=== PATIENT | male | born 1955 | race Caucasian/White ===

== ENCOUNTER 2023-07-17 19:10 | Emergency (ER) | payer MEDICARE, OTHER, SELFPAY ==
[2023-07-17 19:16] VITALS: BP 139/79
[2023-07-17] MEDS: ERYTHROMYCIN 0.5% OPHTHALMIC OINTMENT 1 APPLIC OPHTH (22:35)
--- NOTE | 2023-07-17 22:40 | ED.GENMED ---
History of Present Illness
General
Chief Complaint: Eye Problems
Source: patient
Exam Limitations: none
Time Seen by Provider: 07/17/23 21:08
Nursing documentation reviewed up to this point in time: agreed with
Travel History
Have you had any contact with someone who has COVID-19?: No
Do you have any symptoms of coronavirus? Fever > 100 degrees, chills, cough, shortness of breath, sore throat, loss of taste or smell, muscle aches, or headache?: No
History of Present Illness
History of Present Illness:
68-year-old male with past medical history of hyperlipidemia presenting to the emergency department today after an injury to the right eye where he got poked in the eye with a stick while doing yard work. Denies any changes in vision or additional
concerns otherwise.
Past History
Past History
ED Past Medical History: Arrthythmia (PVCs), GERD and Other (Gout)
ED Past Surgical History: Orthopedic and Other (Umbilical herniorrhaphy)
Social History
Tobacco: Non-smoker
Alcohol: Occasional
Personal:
Living: with family
Employment: Employed
Family History
Family History: Negative Early CAD
Review of Systems
Review of Systems
Allergies reviewed?: Yes
All Other Systems: ROS reviewed and negative except as documented in HPI and ROS
Phy Exam
Physical Exam
Physical Exam:
GENERAL: Alert , in no apparent distress
EYE: Normal extraocular movements normal pupil reaction. Fluorescein examination revealing small abrasion to the 6:00 and 9:00 portion of the cornea. Millimeter in size. No foreign body seen with lid eversion. Normal visual acuity with
correction pupils equal and reactive
NECK: Supple, no significant adenopathy.
ENT: o/p clr, mmm.
CARDIAC: Regular rate and rhythm .
LUNGS: Clear breath sounds bilaterally, no acute respiratory distress, no wheezes/rales/rhonchi
ABDOMEN: Soft, without focal tenderness, no r/g, no cvat
NEUROLOGICAL: Alert and oriented, no focal neuro deficits
SKIN: Warm and dry, skin intact.
MUSCULOSKELETAL: No edema, well perfused.
PSYCH: Normal and appropriate interaction.
Course
Orders/Labs/Results
Orders:
Orders
07/17/23 22:03
Erythromycin (Ilotycin) [Erythromycin 0.5% Ophthalmic Ointment] See Dose Instructions OPHTH NOW STA
07/17/23 22:43
Tetracaine HCl [Tetracaine 0.5% Ophthalmic Solution] 1 drop .ROUTE .[facility]
Vital Signs
Initial and Last Documented VS:
Initial Vital Signs
Temp Pulse Resp BP Pulse Ox
97.9 F 62 18 139/79 97
07/17/23 19:16 07/17/23 19:16 07/17/23 19:16 07/17/23 19:16 07/17/23 19:16
Last Documented Vital Signs
Temp Pulse Resp BP Pulse Ox
97.9 F 62 18 139/79 97
07/17/23 19:16 07/17/23 19:16 07/17/23 19:16 07/17/23 19:16 07/17/23 19:16
MDM/Problems Addressed
MDM/Problems Addressed:
60-year-old male presenting to the emergency department after being hit in the right eye with a branch prior to arrival. Patient is found to have a superficial corneal abrasion no signs of deeper injury normal extraocular movement normal visual
acuity. Patient was given erythromycin ointment and advised for close outpatient follow-up. Return precautions given.
*Critical Care Note
Total Time (30-74mins, 75-104mins- exclusive of procedures): Not Applicable
ED Attending Note
-
Portions of this chart may have been created with voice recognition software.� Occasional wrong word or��sound alike� substitutions may have occurred due to the inherent limitations of voice recognition software.
Discharge Plan
Departure
Patient Disposition: Home (Routine Discharge)
Date of Disposition: 07/17/23
Time of Disposition: 22:40
Patient with high blood pressure during this ER visit?: No
Condition: Good
Covid-19: Not Applicable
Discharge Problem:
Abrasion, corneal
Instructions: Corneal Abrasion (DC)
Prescriptions:
No Action
omeprazole 40 MG capsule,delayed release(DR/EC)
40 mg PO HS
multivitamin [Daily Vitamin] 1 EACH tablet
1 ea PO DAILY
diphenhydramine HCl [Benadryl] 25 MG capsule
50 mg PO PRN PRN (Reason: itching)
Lactobacillus acidophilus [Probiotic] 1 EACH capsule
1 ea PO DAILY
ondansetron 4 mg tablet,disintegrating
4 mg PO Q8H PRN (Reason: nausea and vomiting) Qty: 7 0RF
Referrals:
Patrice Mcgraw I., [Family Provider] -
Doris Thomson MD [Active] - Follow up in 2-3 days
Activity Restrictions/Additional Instructions:
You came to the emergency department today with concerns of discomfort to your right eye. You are found to have a corneal abrasion. Please use the erythromycin 3 times daily to the affected eye. Please follow closely with ophthalmology for any
ongoing symptoms. Return to the emergency department for any worsening, new or concerning symptoms.
Interventions
Interventions:
*Risk Screen - Suicide Last Done: 07/17/23 19:18
*General Assessment Last Done: 07/17/23 19:18
*Neglect/Abuse Screening Last Done: 07/17/23 19:18
*ED COVID-19 Vaccine History Last Done: 07/17/23 19:18
*Nursing Disposition Last Done: 07/17/23 22:47
Discharge Date and Time
Discharge Date/Time: 07/17/23 22:47
Print Language: UKRAINIAN
== END 2023-07-17 22:47 | disposition home or self-care (01) ==
LOC: EMR 19:10
PROVIDERS: EMERGENCY PHYSICIAN Emergency Medicine; FAMILY PHYSICIAN Internal Medicine
DX: S05.01XA Injury of conjunctiva and corneal abrasion without foreign body, right eye, initial encounter (principal); W22.8XXA Striking against or struck by other objects, initial encounter
CPT/HCPCS: 99283

== ENCOUNTER → 2023-07-19 08:48 | Outpatient (REF) | payer MEDICARE, OTHER, SELFPAY | LOC: HWRAD 08:48 | PROVIDERS: ATTENDING PHYSICIAN Internal Medicine | DX: Z00.00 Encounter for general adult medical examination without abnormal findings (principal); K75.81 Nonalcoholic steatohepatitis (NASH); R10.13 Epigastric pain | CPT/HCPCS: 76700 ==

== ENCOUNTER → 2023-08-01 08:13 | Outpatient (REF) | payer MEDICARE, OTHER, SELFPAY | LOC: MRI 3T 08:13 | PROVIDERS: ATTENDING PHYSICIAN Orthopaedic Surgery; FAMILY PHYSICIAN Internal Medicine | DX: M25.562 Pain in left knee (principal); M25.512 Pain in left shoulder | CPT/HCPCS: 73221; 73721 ==

== ENCOUNTER 2023-08-29 12:58 | Inpatient (IN) | payer MEDICARE, OTHER, SELFPAY ==
[2023-08-27 16:59] VITALS: BP 160/97
[2023-08-27 17:17] LABS: % Basophils 0.4 % (0-2); % Eosinophils 0.3 % (0-6); % Immature Granulocytes 0.5 % (0-0.5); % Monocytes 7.1 % (1.7-9.3); % Neutrophils 85.7 % (42.2-75.2); Absolute Basophils 0.1 10^3/uL (0-0.2); Absolute Immature Granulocytes 0.1 10^3/uL (0-0.05); Absolute Lymphocytes 0.7 10^3/uL (1.2-3.4); Absolute Monocytes 0.8 10^3/uL (0.1-0.6); Absolute Neutrophils 9.9 10^3/uL (1.4-6.5); Hematocrit 46.2 % (39.0-52.0); Hemoglobin 15.7 g/dL (13.0-18.0); Mean Corpuscular Hgb 30.3 pg (27.0-31.0); Mean Corpuscular Volume 89.2 fL (80.0-94.0); Nucleated Red Blood Cells % 0 % (-); Platelet Count 166 10^3/uL (130-400); Red Blood Cell Count 5.18 10^6/uL (4.70-6.10); Red Cell Dist. Width 13.9 % (11.5-14.5); White Blood Cell Count 11.6 10^3/uL (4.8-10.8)
[2023-08-27 17:36] LABS: ALT (SGPT) 173 U/L (0-50); AST (SGOT) 184 U/L (17-59); Albumin 4.1 g/dl (3.5-5.0); Alkaline Phosphatase 252 U/L (38-126); Blood Urea Nitrogen 20 mg/dl (9-20); Calcium 9.5 mg/dl (8.4-10.2); Carbon Dioxide 30 mmol/L (22-30); Chloride 101 mmol/L (98-107); Glucose 122 mg/dl (70-99); Potassium 4.2 mmol/L (3.5-5.1); Sodium 136 mmol/L (135-145); Total Bilirubin 2.6 mg/dl (0.2-1.3); Total Protein 6.7 g/dl (6.3-8.2); eGFR > 60.00
[2023-08-27 17:37] LABS: Lipase 151 U/L (23-300)
[2023-08-27 17:45] LABS: Troponin I < 0.012 ng/ml
[2023-08-27 18:52] VITALS: BP 158/77
--- NOTE | 2023-08-27 18:56 | ED.GENMED ---
History of Present Illness
General
Chief Complaint: Chest Pain
Source: patient and spouse
Exam Limitations: none
Time Seen by Provider: 08/27/23 18:55
Travel History
Have you had any contact with someone who has COVID-19?: No
Do you have any symptoms of coronavirus? Fever > 100 degrees, chills, cough, shortness of breath, sore throat, loss of taste or smell, muscle aches, or headache?: No
History of Present Illness
History of Present Illness:
68-year-old male 4 days of mid scapular pain on the right side. Saw his family physician. However about 1 PM today he developed some upper abdominal lower chest pain with this. Some mild nausea. No fever no shortness of breath. History of
biliary duct spasm however has never presented quite like this.
Past History
Past History
ED Past Medical History: Arrthythmia (PVCs), GERD and Other (Gout. Biliary duct spasm)
ED Past Surgical History: Orthopedic and Other (Umbilical herniorrhaphy)
Social History
Tobacco: Non-smoker
Alcohol: Occasional
Personal:
Living: with family
Employment: Employed
Family History
Family History: Negative Early CAD
Phy Exam
Physical Exam
Physical Exam:
GENERAL: Alert and oriented. Nontoxic but appears moderately uncomfortable
EYE: Orbits normal.
NECK: Supple
CARDIAC: Regular rate and rhythm without any obvious murmurs.
LUNGS: Clear breath sounds,normal
ABDOMEN: Soft, no pulsatile masses. Bowel sounds present. Mild epigastric tenderness. No CVA tenderness.
NEUROLOGICAL: Alert and oriented , grossly non-focal
SKIN: Warm and dry, no rash or lesion, no discoloration, skin intact.
MUSCULOSKELETAL: No edema,no deformity.Good color
PSYCH: Normal and appropriate interaction.
Scores
Heart Score for Chest Pain Patients
STEMI patient?: Not applicable
Course
Orders/Labs/Results
Orders:
Orders
08/27/23 Dinner
NPO
Allow oral meds: Yes
Allow clear liquids: Sips of Clears
NPO with Ice Chips: No
08/27/23 16:56
EKG [Electrocardiogram (*1)] Urgent
Reason for Study: Chest Pain
EKG- Treatment ONCE
08/27/23 17:07
Complete Blood Count/With Diff Urgent
Comprehensive Metabolic Panel Urgent
Lipase Urgent
Troponin I Urgent
08/27/23 19:05
IV Insert/Care/Rem.- Treatment PRN
0.9% Sodium Chloride 1000 ml [Nss] 1,000 ml IV BOLUS
Ondansetron Injectable [Zofran] 4 mg IV NOW STA
08/27/23 19:06
US Abdomen Limited Urgent
Comment:
Reason For Exam: Upper abdominal pain to back. Elevated LFTs
08/27/23 19:07
CT Chest/abd/pelvis Angio W/wo Urgent
Comment:
Reason For Exam: Upper back pain radiating to mid abdomen
08/27/23 19:11
HYDROmorphone [Dilaudid] 0.5 mg IV NOW STA
08/27/23 19:48
Electrocardiogram (*1) Stat
Reason for Study: Other
Other Reason for Exam: chest pain
EKG- Treatment ONCE
08/27/23 20:58
Troponin I Urgent
08/27/23 21:21
Warm Compress [Heat Application] As Directed
Apply warm compress to (location):: right thoracic parspinal
Compress Frequency:: Intermittent q2h
Duration of Application: No longer than 20 minutes
08/27/23 21:22
Admit/Transfer Patient As Directed
Co-Sign Provider:
Level of Care: Observation services
Assign to:: Medical/Surgical
Physician / Group: evans allan
Diagnosis: abd pain concern cholestasis exac, right paraspinal muscle strain
Code Status As Directed
Resuscitation Status: Full Code
08/27/23 22:00
Flush (0.9% Sodium Chloride) [Flush (Nss)] See Dose Instructions IV PER PROTOCOL
08/27/23 22:06
Urinalysis Reflex To Culture Urgent
Date Specimen was Collected: 08/27/23
Time Specimen was Collected: 20:59
08/27/23 22:39
0.9% Sodium Chloride 1000 ml [Nss] 1,000 ml IV 100 mls/hr
Allopurinol [Zyloprim] 200 mg PO HS
Famotidine [Pepcid] 10 mg PO HS
HYDROmorphone [Dilaudid] 0.5 mg IV Q3HPRN PRN
HYDROmorphone [Dilaudid] 1 mg IV Q4HPRN PRN
HydrALAZINE [Apresoline] 5 mg IV Q6HPRN PRN
Loratadine [Claritin] 10 mg PO HS
Ondansetron Injectable [Zofran] 4 mg IV Q6HPRN PRN
Rosuvastatin Calcium [Crestor] 5 mg PO HS
08/27/23 22:39
Activity As Directed
Activity Level: As Tolerated
Intake/ Output As Directed
Frequency: Per unit guidelines
Vital Signs As Directed
Frequency: Per unit guidelines
Ot Eval And Treat Routine
Pt Eval And Treat Routine
Activity Level: As Tolerated
DX Deep Vein Thrombosis Video Routine
08/28/23 06:00
Complete Blood Count/With Diff IN AM
Comprehensive Metabolic Panel IN AM
Hgba1c [Glycohemoglobin (HgbA1c)] IN AM
08/28/23 08:00
Lidocaine [Lidocaine 4% Patch] 1 patch TOPICAL DAILY
08/28/23 18:00
Enoxaparin Sodium [Lovenox] 40 mg SC QPM
08/28/23 20:00
Remove Patch [Remove Lidocaine Patch] 1 patch REMOVE DAILY@1999
Abnormal Lab Results
08/27/23
17:07
WBC 11.6 H 10^3/uL
(4.8-10.8)
Abs Immat Gran (auto) 0.1 H 10^3/uL
(0-0.05)
Absolute Neuts (auto) 9.9 H 10^3/uL
(1.4-6.5)
Absolute Lymphs (auto) 0.7 L 10^3/uL
(1.2-3.4)
Absolute Monos (auto) 0.8 H 10^3/uL
(0.1-0.6)
Neutrophils % 85.7 H %
(42.2-75.2)
Lymphocytes % 6.0 L %
(20.5-51.1)
Glucose 122 H mg/dl
(70-99)
Total Bilirubin 2.6 H mg/dl
(0.2-1.3)
AST 184 H U/L
(17-59)
ALT 173 H U/L
(0-50)
Alkaline Phosphatase 252 H U/L
(38-126)
08/27/23 17:07
08/27/23 17:07
Vital Signs
Initial and Last Documented VS:
Initial Vital Signs
Temp Pulse Resp BP Pulse Ox
98.2 F 90 16 160/97 98
08/27/23 16:59 08/27/23 16:59 08/27/23 16:59 08/27/23 16:59 08/27/23 16:59
Last Documented Vital Signs
Temp Pulse Resp BP Pulse Ox
98.2 F 61 18 148/85 98
08/27/23 22:43 08/27/23 22:43 08/27/23 22:43 08/27/23 22:43 08/27/23 23:40
MDM/Problems Addressed
Differential Diagnosis Includes:
Patient presents with 4 days of upper back pain. Developed upper abdominal pain lower chest pain starting around 1 PM today. Has a history of biliary duct spasm. However symptoms have never been the back pain the way this is presented. Pain is
moderate in nature. No pleuritic pain or shortness of breath. No fever. Patient's LFTs and bilirubin are elevated. They had come back to essentially baseline May 11 they are now elevated again and this is likely the source of his symptoms.
However cardiac is also being considered with a normal troponin and EKG. This will be repeated weakness. Also with upper back pain and mid abdominal pain a CT scan will be done. Patient clearly will be admitted for his care
*Radiology
Radiology exam reviewed: radiology read reviewed (CT and ultrasound with no acute findings)
*Pulse Oximetry
Patient hypoxic: no
*EKG
Interpreted by ED Provider?: Yes
Interpretation: normal
Comparison EKG: no changes
Heart Rate: 84
Rate: normal
Rhythm: sinus and PVC's
[place]: normal axis
Interval: normal interval
QRS Pattern: normal QRS
Ischemia: no ischemia
*Critical Care Note
Total Time (30-74mins, 75-104mins- exclusive of procedures): Not Applicable
Data Reviewed
Review of Other/Old Records Reveals: Labs, Records, Operative Reports, Testing and Discharge Summary
Update Note
Update Note:
Patient is more comfortable. Repeat EKG normal sinus rhythm PVCs no acute changes rate of 73. Patient appears much better. Suspect a common duct issue whether spasm stricture etc. Warrants further inpatient care.
ED Attending Note
-
Portions of this chart may have been created with voice recognition software.� Occasional wrong word or��sound alike� substitutions may have occurred due to the inherent limitations of voice recognition software.
Discharge Plan
Departure
Patient Disposition: Admit
Date of Disposition: 08/27/23
Time of Disposition: 20:42
Presentation/result/management discussed w/ accepting MD/DO: Hospitalist
Discharge Problem:
Elevated LFTs, Suspect biliary spasm
Interventions
Interventions:
*Risk Screen - Suicide Last Done: 08/27/23 19:37
*General Assessment Last Done: 08/27/23 19:37
*Neglect/Abuse Screening Last Done: 08/27/23 19:37
ED- Fall Risk Assessment Last Done: 08/27/23 19:37
*ED COVID-19 Vaccine History Last Done: 08/27/23 19:37
*Nursing Disposition Last Done: 08/27/23 22:30
ED- Cardiac Assessment Last Done: 08/27/23 19:37
Discharge Date and Time
Discharge Date/Time: 08/27/23 22:30
[2023-08-27 19:00] VITALS: BP 151/100
[2023-08-27] MEDS: DILAUDID 0.5 MG IV ×2 (19:27→23:54)
[2023-08-27] MEDS: NSS 1000 IV ×2 (19:28→23:27)
[2023-08-27] MEDS: ZOFRAN 4 MG IV (19:28)
[2023-08-27 19:36] VITALS: BMI 32.3
--- NOTE | 2023-08-27 20:58 | HPS.HSE ---
Family Physician
-
Family Physician: Patrice Mcgraw
Chief Complaint
-
Epigastric pain with nausea, right posterior paraspinal thoracic point tenderness after gardening
History of Present Illness
68-year-old male complaining of 4 days of right-sided thoracic paraspinal tenderness with movement and at rest. He states he has been gardening for the past 2 weeks ripping and pulling out weeds. Today at 1 PM he developed upper abdominal/lower
chest pain with mild nausea which is the same pain he has when he has a cholestasis attack. He reports increased urinary frequency today no dysuria. He denies fever, chills, chest pain, palpitations, vomiting, diarrhea.
He has past medical history of PVCs/bigeminy, GERD, gout, biliary duct spasm, cholestasis Hx fatty liver/NATION Dx 6 years ago [facility] via liver biopsy, HLD, cholecystectomy, L5 bulging disc
Medical History
Past Medical History
Past Medical History: Reports Other
Additional Past Medical History:
PVCs/bigeminy
GERD
gout
biliary duct spasm
Hx fatty liver/NATION
HLD
cholecystectomy, L5 bulging disc
Past Surgical History: Reports Other
Additional Past Surgical History:
Umbilical hernia repair
Abscess left tibia
Right rotator cuff repair 2001
Arthroscopy knee 2007
Social History
Tobacco: Non-smoker
Alcohol: None
Drug: None
Personal:
Living: With Family ()
Employment: Retired
Family History
Family History: Other (Mother history of dementia, HTN in her 90s, father history of dementia age 80s 4 brothers 1 sister history of obesity, 1 brother history DM2)
Allergies / Home Medications
Allergies reflects when Allergies were last updated in [facility].
Home Medications with original date entered in [facility]
Allergy/Medication List:
Allergies
Allergy/AdvReac Type Severity Reaction Status Date / Time
Cephalosporins Allergy Unknown Verified 06/15/14 16:57
codeine Allergy Tongue Verified 08/27/23 17:02
Swelling
penicillin G Allergy Hives Verified 06/15/14 16:57
Home Medications
allopurinol 100 mg tablet 200 mg PO HS 08/27/23
famotidine 10 mg tablet 10 mg PO HS 08/27/23
loratadine 10 mg tablet 10 mg PO HS 08/27/23
rosuvastatin 5 mg tablet 5 mg PO HS 08/27/23
Review of Systems
-
History Source: Patient and Family ( at bedside)
A 12 point ROS was completed and negative except as noted: Yes
Constitutional: Denies Fatigue or Chills
EENT: Denies Sore Throat or Runny Nose
Respiratory: Denies Cough or Trouble Breathing
Cardiac: Denies Chest Pain, Diaphoresis, Palpitations or Syncope
Abdomen/GI: Reports Abdominal Pain (Epigastric) and Nausea; Denies Vomiting, Diarrhea, Constipated, Bloody Stools or Black Stools
: Reports Frequency; Denies Dysuria, Flank Pain, Incontinence, Difficulty Voiding or Urgency
Musculoskeletal: Reports Other (Right thoracic paraspinal muscular tenderness); Denies Joint Pain or Edema
Skin: Denies Itching or Rash
Neurological: Denies Dizzy, Headache or Weakness
Endocrine: Reports No Symptoms
Hematologic/Lymphatic: Reports No Symptoms
Psych: Reports Calm
Physical Exam
Vital Signs
Vital Signs
Temp Pulse Resp BP Pulse Ox
98.2 F 70 12 151/100 96
08/27/23 16:59 08/27/23 19:30 08/27/23 19:30 08/27/23 19:00 08/27/23 19:37
Physical Exam
General: Comfortable and Conversant; No Fever or Chills
HEENT: NormoCephalic, Anicteric, Moist mucous membranes, PERRLA, Suring Conjunctivae and No Ptosis
Respiratory: Clear; No Wheezes, Rales or Rhonchi
Cardiac: S1/S2 and Regular Rhythm; No Murmur, Rub, Gallop or Peripheral Edema
Breast: Deferred by me
GI: Soft, Non Distended, Normal Bowel Sounds, Tender (Epigastric) and No Hepatosplenomegaly
Rectal: Deferred by Provider
Genito-urinary: Deferred by me
Musculoskeletal: No Clubbing, No Cyanosis and No Edema
Skin: Warm, Dry and Other (Right thoracic paraspinal muscular tenderness); No Rash
Neuro: AO x 3, No Motor Deficits, Nonfocal/grossly intact, Cranial Nerves Intact and No Sensory Deficits; No Slurred Speech, Facial Droop or Tremors
Psych: Calm
Laboratory Results
-
08/27/23 17:07
08/27/23 17:07
Laboratory Results
Total Bilirubin 2.6 mg/dl (0.2-1.3) H 08/27/23 17:07
AST 184 U/L (17-59) H 08/27/23 17:07
ALT 173 U/L (0-50) H 08/27/23 17:07
Alkaline Phosphatase 252 U/L (38-126) H 08/27/23 17:07
Troponin I < 0.012 ng/ml 08/27/23 17:07
Lipase 151 U/L (23-300) 08/27/23 17:07
Data Reviewed
-
Ultrasound: Report Reviewed by me
Lab Data: Labs Reviewed by me
Impression/Plan
-
Impression/plan:
Obs MedSurg
#Abdominal pain with transaminitis, hyperbilirubinemia likely cholestasis exacerbation
#Hx fatty liver/NATION dx 6 years ago [facility]
#Hx biliary spasms
#Hx cholecystectomy 2014
AST 184, ALT 173, alk phos 252, T. bili 2.6
WBC 11.6, afebrile
-Consult GI
-N.p.o. except sips of water/meds
-IV NSS
-IV Zofran
-IV pain control
-Continue Pepcid 10 mg at bedtime, Crestor 5 mg at bedtime
-Follow CBC, CMP
CT chest abdomen pelvis with without contrast:
No acute pathology of the chest abdomen pelvis
Prior cholecystectomy
Mild pneumobilia probably due to prior sphincterectomy
Severe diverticulosis stable
Mild fecal material throughout the colon progress
Mild prostate hypertrophy
Large simple left renal cyst
Abdominal ultrasound: Mild hepatomegaly 17.9 cm�new, hepatic fatty infiltration new, prior cholecystectomy
CBD duct 7 mm
#Right posterior paraspinal muscle strain
-Heat
-Lidoderm patch
#Hyperglycemia
BS 122
-Reports symptoms of increased urination
-Check HgbA1c
#HTN to be established-likely secondary to pain
151/100 will monitor BP
IV hydralazine if SBP> 185/100
#HLD
-Continue Crestor 5 mg at bedtime
-Check lipid profile
# PVCs/bigeminy hx
#GERD
-Continue Pepcid 10 mg at bedtime
# Gout
-Continue allopurinol 200 mg at bedtime
#L5 bulging disc hx
#Seasonal allergies
Continue loratadine 10 mg at bedtime
DVT prophylaxis
Subcu Lovenox
Full code
--- NOTE | 2023-08-27 21:21 | W.PN.UPDATE ---
Update Note
Progress Note Update
This addendum is for H&P written on 08/27/23
I agree with assessment and plan, in addition:
68yo M came with midscapular pain, later radiated to abd. Lipase WNL, elevated LFT with hepatocellular and obstrcutive pattern which are rather chronic.
US RUQ - CBD 7mm, no stone, hx of cholecystectomy. CTA chest/abd/pelvis- no acute findings. No fever. Patient had similar episodes of cholestasis before. ALso PMHx of NATION
- IVF, NPO, pain mgmt GI consult and serial LFT
We have spent at least 79min preparing admission, communicating to family, reviewing previous chart notes, and direct patient care
[2023-08-27 21:29] LABS: Troponin I < 0.012 ng/ml
[2023-08-27 22:26] LABS: Urine Albumin Negative (Neg - Trace); Urine Bilirubin Negative (Negative); Urine Character Clear (Clear); Urine Color Yellow; Urine Glucose Negative (Negative); Urine Ketone 1+ (Negative); Urine Leukocyte Negative (Negative); Urine Nitrite Negative (Negative); Urine Occult Blood Negative (Negative); Urine Urobilinogen 2+ (Neg - 1+)
[2023-08-27 22:33] VITALS: BMI 32.2
[2023-08-27 22:43] VITALS: BP 148/85
[2023-08-27] MEDS: CLARITIN 10 MG PO (23:27)
[2023-08-27] MEDS: PEPCID 10 MG PO (23:27)
[2023-08-27] MEDS: ZYLOPRIM 200 MG PO (23:27)
[2023-08-27] MEDS: CRESTOR 5 MG PO (23:27)
--- NOTE | 2023-08-28 00:22 | PTCARENOTE ---
Receive pt from ER. Pt alert oriented X3, calm and cooperative. In no distress. Pt assisted X1 to his bed. Pt oriented to the room, call denis within reach. Pt states that he has epigastric pain, which is manageable at this time. The pain is 2-3/10.
Pt complains most about middle back pain. The pain is 5/10. Pt states that heat compresses are helpful. Pt has no complaint of SOB, chest pain, or nausea. VSS (T=98.2, HR=61, RR=18, YW=066/85, SpO2=98% on RA). IVFs infusing, dilaudid given for pain.
Will continue to monitor the pt.
[2023-08-28] MEDS: LIDOCAINE 4% PATCH 1 PATCH TOPICAL (07:43)
[2023-08-28 07:56] VITALS: BP 140/85
[2023-08-28] MEDS: DILAUDID 0.5 MG IV ×2 (07:57→21:25)
[2023-08-28] MEDS: FLUSH (NSS) 1 FLUSH IV ×2 (07:58→10:06)
[2023-08-28 08:27] LABS: % Basophils 0.5 % (0-2); % Eosinophils 0.7 % (0-6); % Immature Granulocytes 0.4 % (0-0.5); % Lymphocytes 17.5 % (20.5-51.1); % Monocytes 8.8 % (1.7-9.3); % Neutrophils 72.1 % (42.2-75.2); Absolute Eosinophils 0.1 10^3/uL (0-0.7); Absolute Lymphocytes 1.3 10^3/uL (1.2-3.4); Absolute Monocytes 0.7 10^3/uL (0.1-0.6); Absolute Neutrophils 5.4 10^3/uL (1.4-6.5); Hematocrit 43.9 % (39.0-52.0); Mean Corp Hgb Conc. 34.2 g/dL (33.0-37.0); Mean Corpuscular Volume 90.7 fL (80.0-94.0); Mean Platelet Volume 10.8 fL (7.4-10.4); Nucleated Red Blood Cells % 0 % (-); Platelet Count 165 10^3/uL (130-400); Red Blood Cell Count 4.84 10^6/uL (4.70-6.10); White Blood Cell Count 7.5 10^3/uL (4.8-10.8)
[2023-08-28 09:00] LABS: ALT (SGPT) 204 U/L (0-50); AST (SGOT) 136 U/L (17-59); Albumin 3.7 g/dl (3.5-5.0); Alkaline Phosphatase 228 U/L (38-126); Blood Urea Nitrogen 19 mg/dl (9-20); Calcium 8.8 mg/dl (8.4-10.2); Carbon Dioxide 30 mmol/L (22-30); Chloride 103 mmol/L (98-107); Estimated Creatinine Clearance 105 ml/min; Glucose 85 mg/dl (70-99); Potassium 4.4 mmol/L (3.5-5.1); Sodium 136 mmol/L (135-145); Total Bilirubin 3.1 mg/dl (0.2-1.3); Total Protein 6.1 g/dl (6.3-8.2); eGFR > 60.00
--- NOTE | 2023-08-28 09:39 | W.PN.HOSP.TC ---
Today's Communication/Plan
-
decadron 10 mg IV x 1
await GI input
Assessment / Plan
Assessment / Plan
pt is a 68 year old male
Abdominal pain with transaminitis, hyperbilirubinemia likely cholestasis exacerbation (has hx of fatty liver/NATION/biliary spasms/cholecystectomy)--await GI--CT scan without acute abnormalities--NPO/IVF--pain control/antiemetics
Right posterior paraspinal muscle strain with upper right rib pain --think musculoskeletal/costochondritis--Heat--Lidoderm patch--will give 10 mg IV decadron x 1
Hyperglycemia--BS 122 on admission--watch with steroid--Reports symptoms of increased urination--Check HgbA1c
Essential HTN to be established--likely secondary to pain--151/100 will monitor BP--IV hydralazine if SBP> 185/100
HLD--Continue Crestor 5 mg at bedtime--Check lipid profile
PVCs/bigeminy hx
GERD--Continue Pepcid 10 mg at bedtime
Gout--Continue allopurinol 200 mg at bedtime
L5 bulging disc hx
Seasonal allergies--Continue loratadine 10 mg at bedtime
DVT prophylaxis--Subcu Lovenox
Full code
Anticipated Discharge: 24 - 48 hours
Subjective/Interval History
-
Date of Service: August 28, 2023
pt c/o scapular pain and now pain new axilla on chest wall (tender to palpation along ribs)
Objective Data
-
Labs:
Laboratory Results
08/28/23
05:41
WBC Pending
Hgb Pending
Hct Pending
Plt Count Pending
Sodium 136
Potassium 4.4
Chloride 103
Carbon Dioxide 30
BUN 19
Creatinine 0.9
Glucose 85
Calcium 8.8
Total Bilirubin 3.1 H
AST 136 H
ALT 204 H
Alkaline Phosphatase 228 H
Vital Signs:
max temp for 24 hours
08/27/23
22:43
Temp 98.2 F
Vital Signs
Temp Pulse Resp BP Pulse Ox
98.3 F 52 16 140/85 97
08/28/23 07:56 08/28/23 07:56 08/28/23 07:56 08/28/23 07:56 08/28/23 07:56
I&O
08/27/23 08/28/23 08/29/23
06:59 06:59 06:59
Intake Total 600 / 600
Balance 600 / 600
Review of Systems
-
All other systems: Reviewed and negative
Musculoskeletal: Reports Other (scapula and rib pains)
Physical Exam
-
General: Well Developed, Well Nourished and No Apparent Distress
HEENT: Normocephalic and Atraumatic
Respiratory: Clear to Auscultation; Negative Wheezes or Rhonchi
Cardiac: Regular Rhythm and S1/S2; Negative Murmur
GI: Soft, Nontender, Nondistended and Normal Bowel Sounds
Musculoskeletal: No Clubbing, No Cyanosis, No Edema and Other (right scapular pain and upper right rib pain to palpation)
Neuro: Awake and Alert
Psych: Calm
[2023-08-28] MEDS: NSS 1000 IV ×2 (09:43→19:44)
[2023-08-28] MEDS: DECADRON 10 MG IV (09:59)
[2023-08-28 10:48] LABS: Glycohemoglobin (HgbA1c) 5.6 % (4.0-5.6)
--- NOTE | 2023-08-28 11:29 | CON.GI ---
Addendum entered and electronically signed by Nava Aranda MD 08/28/23 14:01:
I saw and examined the patient.
The RUG CLEANER's note was reviewed and I agree with the note.
--Abdominal pain/nausea/vomiting
--Elevated liver test -AST 136/ALT 204/alkaline phos 3-28/total bilirubin 3.1. Ultrasound abdomen on admission no intrahepatic dilation. CBD 7 mm
-History history of cholecystectomy
-History of CBD stone s/p ERCP 2014
-Fatty liver
plan
Considering his prior history of CBD stone - his current symptoms/elevated liver test suspicious for CBD stone or sludge. Will evaluate with MRI /MRCP
Trend LFT
N.p.o.
Pain management as per medical team
Antiemetics as needed
Will follow
Original Note:
Consultation
-
Date/Time Consultation Requested: 08/27/23 @ 22:03
Date/Time Consultation Performed: 08/28/23 @ 11:30
Requesting Provider: ROSIO Ricci
Performing Provider: ROSIO Chopra; Dr. Aranda
Reason for Consultation: cholestasis, hx parks
Medical History
Chief Complaint / HPI
Chief Complaint: Epigastric pain, nausea,right posterior paraspinal thoracic point tendernes
History of Present Illness:
The patient is a 68-year-old male with a past medical history significant for GERD, choledocholithiasis status postcholecystectomy and ERCP in 2014, biliary colic/cholestasis, history of fatty liver disease diagnosed on liver biopsy (6-7 years ago
at [place]), hyperlipidemia, lumbar disc disease, who presented to the emergency room with complaints of epigastric pain associated with nausea and right, shoulder pain. We are being asked to evaluate for the presenting symptoms. The patient
reports that 2 weeks ago he had developed abdominal pain with typical symptoms of previous biliary attacks. He notes since having his goal is about 1 attack yearly which unclear in etiology. His notes that he did appear yellow in color which
has symptoms improved. He notes that his urine also was dark as well. He notes no significant fevers or chills but did feel clammy and had 3 episodes of nausea with vomiting which prompted his ER evaluation. He describes epigastric pain that is
worsened after fatty meals. This episode did occur after eating macaroni and cheese. He notes that he has also been having some back pain and notes she is undergoing evaluation for with his PCP for a mid thoracic disc herniation. He notes that he
was having right-sided back pain which now has progressed into the right chest area. He notes that he did have a liver biopsy about 6 to [address] Cisneros out of [facility] which did confirm PARKS. He had a FibroScan done within the last
few years which did show F0 to F1 disease he notes due to his ongoing intermittent episodes of suspected cholestasis a possibility of stent placement was talked about in the past but he did not go through with. He notes that he was on medication at
some point in the past but he does not recall the name for this. He tries to maintain a low-fat diet but does eat fatty foods at times. He denies any alcohol use. He is a non-smoker. He otherwise denies any significant weight loss, loss of
appetite, dysphagia, odynophagia, change in bowel habits, melena, hematochezia, or hematemesis. He did any history of hepatitis or other liver disease. EGD and colonoscopy as noted below although he had more recent colonoscopy within the last [address] Cisneros and notes that he is due now. He denies any family history of first-degree relatives with colon cancer or other GI cancers or disorders, but noted his paternal grandmother did have stomach cancer. Routine labs on admission
showed WBC 11.6, total bilirubin 2.6, AST 184, ALT 173, alk phos 252, lipase 151, otherwise CBC and CMP within normal limits. Ultrasound imaging was obtained showing mild hepatomegaly and hepatic fatty infiltration otherwise no biliary findings. A
CTA of the chest, abdomen, and pelvis was also obtained showing new acute pathology suggestive of dissection or PE, with chronic findings as noted below. He was made n.p.o., started on IV fluids, admitted for further evaluation by GI and LFT trend.
Past Medical History
Past Medical History: GERD, HTN, Hypercholesterolemia and Other (Choledocholithiasis status post ERCP and CCY in 2015, PARKS diagnosed on liver biopsy, lumbar disc disease, gout, episodic biliary attacks/cholestasis)
Past Surgical History: Cholecystectomy and Other (Umbilical hernia repair, right rotator cuff repair, right meniscus repair, abscess of left the tib-fib)
Social History
Tobacco: Non-Smoker
Alcohol: None
Drug: None
Personal:
Living: With Family
Family History
Family History: Reviewed & Not Pertinent
Allergies / Home Medications
Allergy/AdvReac Type Severity Reaction Status Date / Time
Cephalosporins Allergy Unknown Verified 06/15/14 16:57
codeine Allergy Tongue Verified 08/27/23 17:02
Swelling
penicillin G Allergy Hives Verified 06/15/14 16:57
�Medication �Instructions �Recorded
allopurinol 100 mg tablet 200 mg PO HS 08/27/23
famotidine 10 mg tablet 10 mg PO HS 08/27/23
loratadine 10 mg tablet 10 mg PO HS 08/27/23
rosuvastatin 5 mg tablet 5 mg PO HS 08/27/23
Review of Systems
-
History Source: Patient and Family
All other systems: A 12 pt ROS was Negative except as stated above in HPI
Vital Signs
Temp Pulse Resp BP Pulse Ox
98.3 F 52 16 140/85 95
08/28/23 07:56 08/28/23 07:56 08/28/23 07:56 08/28/23 07:56 08/28/23 10:49
Physical Exam
Exam
General: Well Developed, Well Nourished and Other (Slightly jaundiced)
HEENT: Normocephalic, Anicteric and Atraumatic
Respiratory: Clear
Cardiac: S1/S2 and Regular Rhythm
Breast: Deferred by me
GI: Soft, Non Distended, Normal Bowel Sounds and Tender (Minimally tender in the right lower quadrant)
Rectal: Deferred by Provider
Musculoskeletal: No Edema
Skin: Warm and Dry
Neuro: Awake, Alert and Oriented
Psych: Calm
Results
WBC 7.5 10^3/uL (4.8-10.8) 08/28/23 05:41
Hgb 15.0 g/dL (13.0-18.0) 08/28/23 05:41
Hct 43.9 % (39.0-52.0) 08/28/23 05:41
MCV 90.7 fL (80.0-94.0) 08/28/23 05:41
Plt Count 165 10^3/uL (130-400) 08/28/23 05:41
Absolute Neuts (auto) 5.4 10^3/uL (1.4-6.5) 08/28/23 05:41
Sodium 136 mmol/L (135-145) 08/28/23 05:41
Potassium 4.4 mmol/L (3.5-5.1) 08/28/23 05:41
Chloride 103 mmol/L (98-107) 08/28/23 05:41
Carbon Dioxide 30 mmol/L (22-30) 08/28/23 05:41
BUN 19 mg/dl (9-20) 08/28/23 05:41
Creatinine 0.9 mg/dL (0.7-1.3) 08/28/23 05:41
Calcium 8.8 mg/dl (8.4-10.2) 08/28/23 05:41
Total Bilirubin 3.1 mg/dl (0.2-1.3) H 08/28/23 05:41
AST 136 U/L (17-59) H 08/28/23 05:41
ALT 204 U/L (0-50) H 08/28/23 05:41
Alkaline Phosphatase 228 U/L (38-126) H 08/28/23 05:41
Lipase 151 U/L (23-300) 05/10/24 17:07
Diagnostic Image Results:
08/27/2023 Us abdomen: Mild hepatomegaly. New. Hepatic fatty infiltration. New. Prior cholecystectomy.
08/27/2023 CTA C/A/P: IMPRESSION: No acute pathology of the chest, abdomen and pelvis. No evidence of aortic dissection nor gross pulmonary embolus. Large simple left renal cyst. Stable. Severe diverticulosis. Stable. Mild fecal material throughout
the colon. Progressed. Mild prostate hypertrophy. Stable.
Prior GI Procedures:
EGD: 04/09/2022, Dr. Molina: Normal esophagus. Irregular Z-line. Mild antral gastritis. Bilious gastric fluid. Normal examined duodenum. Biopsies negative for EOE, Love's esophagus, intestinal metaplasia of the stomach, H. pylori, or
celiac.
Colonoscopy: 08/14/2010 Dr. Molina: Diverticulosis in the entire examined colon. Non-bleeding external hemorrhoids.
Assessment / Plan
-
The patient is a 68-year-old male with a past medical history significant for GERD, choledocholithiasis status postcholecystectomy and ERCP in 2014, biliary colic/cholestasis, history of fatty liver disease diagnosed on liver biopsy (6-7 years ago
at [place]), hyperlipidemia, lumbar disc disease, who presented to the emergency room with complaints of epigastric pain associated with nausea and right, shoulder pain. We are being asked to evaluate for the presenting symptoms. He notes recurrent
attacks similar to this about once yearly of unclear etiology. Possibly dietary related. Imaging does not suggest any obstruction or biliary ductal dilation. With significant elevation of LFTs with mixed hepatocellular and cholestatic pattern.
He has had a liver biopsy in the past out of [facility] which did confirm PARKS. He denies history of hepatitis or other liver etiology. Noted with history as above with choledocho status post CCY and ERCP in 2014, which he reports since has
been having the symptoms intermittently. He is not on any medications at this time to treat cholestasis.
Problem list:
-Abnormal LFTs, mixed hepatocellular/cholestatic pattern
-Abdominal pain, hx of biliary colic/spasms v cholestasis
-History of choledocholithiasis with CCY and ERCP in 2015
-PARKS diagnosed on liver biopsy at [facility]
-Leukocytosis, resolved
-Nausea with vomiting, resolved
-Ultrasound showing mild hepatomegaly, fatty liver infiltration
Other pertinent medical history:
-GERD
-Hyperlipidemia
-Lumbar disc disease
-Gout
Recommendations:
-Etiology of abdominal pain and abnormal LFTs likely secondary to biliary etiology such as cholestasis versus biliary spasm versus obstructive process versus other. Reassuringly imaging does not show any concern for mass or biliary ductal dilation.
-At this time would recommend MRI with MRCP for further evaluation to rule out underlying obstructive process
-To consider ERCP +/- EUS given the chronicity of these attacks with no recent formal GI evaluation (he has followed with Dr. Cisneros out of [place] in the past). He notes that it was discussed about him having a stent placed in the past but he did not
proceed with this.
-To consider bile acid reducing medications pending above (such as ursodiol, cholestyramine)
-Trend LFTs
-Will check hepatitis serologies
-Avoid hepatotoxins
-N.p.o. until MRI is complete, then would proceed with clear liquid diet and advance as tolerated to low-fat
-He should have regular follow-up with GI/hepatology given history of PARKS.
-PPI for chronic GERD
-Further plan pending above
Data Reviewed
-
CT Scan: Report Reviewed by me and Discussed with Physician
Ultrasound: Report Reviewed by me and Discussed with Physician
Old Records: Reviewed
-
-
Thank you for consultation and allowing me to participate in the patient's care. Please call the solutions delivery consultant GI physician during the after hours with any questions or concerns.
--- NOTE | 2023-08-28 14:51 | CM ---
Initial assessment completed with at beside while pt was asleep.
Pt is a 68yr old male admitted on OBS with Abdominal pain and nausea to his right paraspinal thoracic point.
SW reviewed OBS letter and provided signature.
Pt and at baseline live in a multi level home and pt is independent/active at baseline.
No hx or current use of DME/VN/SNF.
PCP; Patrice Mcgraw
Pharm; [facility] [address]
PLAN; DC to home with no needs anticipated.
[2023-08-28 15:31] VITALS: BP 140/91
[2023-08-28] MEDS: PEPCID 10 MG PO (21:15)
[2023-08-28] MEDS: CLARITIN 10 MG PO (21:15)
[2023-08-28] MEDS: ZYLOPRIM 200 MG PO (21:16)
[2023-08-28 23:33] VITALS: BP 139/75
[2023-08-29] MEDS: DILAUDID 0.5 MG IV ×4 (00:27→21:33)
[2023-08-29] MEDS: NSS 1000 IV ×2 (04:39→16:34)
[2023-08-29 07:20] VITALS: BP 155/87
[2023-08-29 08:29] LABS: Hematocrit 42.2 % (39.0-52.0); Hemoglobin 13.8 g/dL (13.0-18.0); Mean Corp Hgb Conc. 32.7 g/dL (33.0-37.0); Mean Corpuscular Hgb 30.3 pg (27.0-31.0); Mean Corpuscular Volume 92.5 fL (80.0-94.0); Mean Platelet Volume 10.9 fL (7.4-10.4); Platelet Count 163 10^3/uL (130-400); Red Blood Cell Count 4.56 10^6/uL (4.70-6.10); White Blood Cell Count 6.7 10^3/uL (4.8-10.8)
[2023-08-29 08:55] LABS: ALT (SGPT) 153 U/L (0-50); AST (SGOT) 70 U/L (17-59); Albumin 3.4 g/dl (3.5-5.0); Alkaline Phosphatase 188 U/L (38-126); Blood Urea Nitrogen 21 mg/dl (9-20); Calcium 8.8 mg/dl (8.4-10.2); Carbon Dioxide 26 mmol/L (22-30); Chloride 104 mmol/L (98-107); Estimated Creatinine Clearance 118 ml/min; Glucose 95 mg/dl (70-99); Magnesium 1.9 mg/dl (1.6-2.3); Potassium 4.4 mmol/L (3.5-5.1); Sodium 134 mmol/L (135-145); Total Bilirubin 2.1 mg/dl (0.2-1.3); Total Protein 5.8 g/dl (6.3-8.2); eGFR > 60.00
[2023-08-29] MEDS: LIDOCAINE 4% PATCH TOPICAL (09:33)
--- NOTE | 2023-08-29 12:00 | W.PN.GI.CBS2 ---
Today's Communication / Plan
-
Follow-up MRI /MRCP
Assessment / Plan
-
The patient is a 68-year-old male with a past medical history significant for GERD, choledocholithiasis status postcholecystectomy and ERCP in 2014, biliary colic/cholestasis, history of fatty liver disease diagnosed on liver biopsy (6-7 years ago
at [place]), hyperlipidemia, lumbar disc disease, who presented to the emergency room with complaints of epigastric pain associated with nausea and right, shoulder pain. We are being asked to evaluate for the presenting symptoms. He notes recurrent
attacks similar to this about once yearly of unclear etiology. Possibly dietary related. Imaging does not suggest any obstruction or biliary ductal dilation. With significant elevation of LFTs with mixed hepatocellular and cholestatic pattern.
He has had a liver biopsy in the past out of [facility] which did confirm NATION. He denies history of hepatitis or other liver etiology. Noted with history as above with choledocho status post CCY and ERCP in 2014, which he reports since has
been having the symptoms intermittently. He is not on any medications at this time to treat cholestasis.
--Abdominal pain/nausea/vomiting
--on admission Elevated liver test -AST 136/ALT 204/alkaline phos 3-28/total bilirubin 3.1. Ultrasound abdomen on admission no intrahepatic dilation. CBD 7 mm
-History history of cholecystectomy
-History of CBD stone s/p ERCP 2014
-Fatty liver
plan
Considering his prior history of CBD stone - his current symptoms/elevated liver test suspicious for CBD stone or sludge. Will evaluate with MRI /MRCP- pending
Trend LFT-trending down now AST 70/ALT 153/alkaline phosphatase 188/total bilirubin 2.1
N.p.o.
Pain management as per medical team
Antiemetics as needed
Will follow
Total Time Spent with Patient (in minutes): 35
Subjective
Subjective
Date of Service: August 29, 2023
Continues doing intermittent abdominal pain. No vomiting. No fever
Objective
Data Reviewed
Laboratory Data:
Laboratory Results
08/29/23 05:38
08/29/23 05:38
Laboratory Results
Magnesium 1.9 mg/dl (1.6-2.3) 08/29/23 05:38
Total Bilirubin 2.1 mg/dl (0.2-1.3) H 08/29/23 05:38
AST 70 U/L (17-59) H 08/29/23 05:38
ALT 153 U/L (0-50) H 08/29/23 05:38
Alkaline Phosphatase 188 U/L (38-126) H 08/29/23 05:38
Lipase 151 U/L (23-300) 08/27/23 17:07
Vital Signs and I&O:
Vital Signs
Temp Pulse Resp BP Pulse Ox
97.6 F 54 16 155/87 98
08/29/23 07:20 08/29/23 07:20 08/29/23 07:20 08/29/23 07:20 08/29/23 10:35
I&O
08/28/23 08/29/23 08/30/23
06:59 06:59 06:59
Intake Total 600 / 600 1220 / 1220
Balance 600 / 600 1220 / 1220
Physical Exam
Physical Exam
GI: Soft, Non Distended and Non Tender
--- NOTE | 2023-08-29 12:52 | W.PN.HOSP.TC ---
Today's Communication/Plan
-
await MRIs
dilaudid for pain control
Assessment / Plan
Assessment / Plan
pt is a 68 year old male
Abdominal pain with transaminitis, hyperbilirubinemia likely cholestasis exacerbation (has hx of fatty liver/NATION/biliary spasms/cholecystectomy)--await GI--CT scan without acute abnormalities--NPO/IVF--pain control/antiemetics--MRI/MRCP pending
Right posterior paraspinal muscle strain with upper right rib pain --think musculoskeletal/costochondritis--Heat--Lidoderm patch--will give 10 mg IV decadron x 1--no relief--taking dilaudid--await MRI shoulder
Hyperglycemia--BS 122 on admission--watch with steroid--Reports symptoms of increased urination--HgbA1c 5.6
Essential HTN to be established--likely secondary to pain--151/100 will monitor BP--IV hydralazine if SBP> 185/100
HLD--Continue Crestor 5 mg at bedtime--Check lipid profile
PVCs/bigeminy hx
GERD--Continue Pepcid 10 mg at bedtime
Gout--Continue allopurinol 200 mg at bedtime
L5 bulging disc hx
Seasonal allergies--Continue loratadine 10 mg at bedtime
DVT prophylaxis--Subcu Lovenox
Full code
Anticipated Discharge: > 48 hours
Subjective/Interval History
-
Date of Service: August 29, 2023
pt c/o ongoing right sided rib chest pain--describes burning sensation but no rash
Objective Data
-
Labs:
Laboratory Results
08/29/23
05:38
WBC 6.7
Hgb 13.8
Hct 42.2
Plt Count 163
Sodium 134 L
Potassium 4.4
Chloride 104
Carbon Dioxide 26
BUN 21 H
Creatinine 0.8
Glucose 95
Calcium 8.8
Total Bilirubin 2.1 H
AST 70 H
ALT 153 H
Alkaline Phosphatase 188 H
Vital Signs:
max temp for 24 hours
08/28/23
23:33
Temp 99.0 F
Vital Signs
Temp Pulse Resp BP Pulse Ox
97.6 F 54 16 155/87 98
08/29/23 07:20 08/29/23 07:20 08/29/23 07:20 08/29/23 07:20 08/29/23 10:35
I&O
08/28/23 08/29/23 08/30/23
06:59 06:59 06:59
Intake Total 600 / 600 1220 / 1220
Balance 600 / 600 1220 / 1220
Review of Systems
-
All other systems: Reviewed and negative
Musculoskeletal: Reports Other (upper right rib and chest pain)
Physical Exam
-
General: Well Developed, Well Nourished and No Apparent Distress
HEENT: Normocephalic and Atraumatic
Respiratory: Clear to Auscultation; Negative Wheezes or Rhonchi
Cardiac: Regular Rhythm and S1/S2; Negative Murmur
GI: Soft, Nontender, Nondistended and Normal Bowel Sounds
Musculoskeletal: No Clubbing, No Cyanosis, No Edema and Other (upper rib pain in axilla area tender to touch--no rashes noted)
Skin: Warm and Dry
Neuro: Awake
Psych: Calm
[2023-08-29 15:20] VITALS: BP 165/95
[2023-08-29 18:12] VITALS: BP 146/88
[2023-08-29] MEDS: PEPCID 10 MG PO (21:20)
[2023-08-29] MEDS: ZYLOPRIM 200 MG PO (21:21)
[2023-08-29] MEDS: CLARITIN 10 MG PO (21:21)
[2023-08-29 23:03] VITALS: BP 161/94
[2023-08-30] MEDS: DILAUDID 0.5 MG IV (00:53)
[2023-08-30] MEDS: NSS 1000 IV ×3 (02:41→21:48)
[2023-08-30 05:48] LABS: Hematocrit 39.8 % (39.0-52.0); Hemoglobin 13.7 g/dL (13.0-18.0); Mean Corp Hgb Conc. 34.4 g/dL (33.0-37.0); Mean Corpuscular Hgb 31.1 pg (27.0-31.0); Mean Corpuscular Volume 90.5 fL (80.0-94.0); Mean Platelet Volume 10.6 fL (7.4-10.4); Platelet Count 154 10^3/uL (130-400); Red Cell Dist. Width 14.1 % (11.5-14.5); White Blood Cell Count 5.6 10^3/uL (4.8-10.8)
[2023-08-30 06:13] LABS: ALT (SGPT) 115 U/L (0-50); AST (SGOT) 38 U/L (17-59); Albumin 3.2 g/dl (3.5-5.0); Alkaline Phosphatase 156 U/L (38-126); Blood Urea Nitrogen 18 mg/dl (9-20); Calcium 8.8 mg/dl (8.4-10.2); Carbon Dioxide 28 mmol/L (22-30); Chloride 105 mmol/L (98-107); Estimated Creatinine Clearance 105 ml/min; Glucose 86 mg/dl (70-99); Magnesium 1.9 mg/dl (1.6-2.3); Potassium 4.1 mmol/L (3.5-5.1); Sodium 137 mmol/L (135-145); Total Bilirubin 1.1 mg/dl (0.2-1.3); Total Protein 5.6 g/dl (6.3-8.2); eGFR > 60.00
[2023-08-30 07:30] VITALS: BP 151/83
[2023-08-30] MEDS: LIDOCAINE 4% PATCH TOPICAL (09:17)
--- NOTE | 2023-08-30 11:03 | W.PN.HOSP.TC ---
Today's Communication/Plan
-
d/c IF CLEARED by GI
Assessment / Plan
Assessment / Plan
pt is a 68 year old male
Abdominal pain with transaminitis, hyperbilirubinemia likely cholestasis exacerbation (has hx of fatty liver/NATION/biliary spasms/cholecystectomy)--await GI--CT scan without acute abnormalities--NPO/IVF--pain control/antiemetics--MRI/MRCP without
significant findings--GI considering EUS tomorrow....
Right posterior paraspinal muscle strain with upper right rib pain --think musculoskeletal/costochondritis--Heat--Lidoderm patch--will give 10 mg IV decadron x 1--no relief--taking dilaudid-- MRI shoulder OK--apprec ortho input--start flexeril
Hyperglycemia--BS 122 on admission--watch with steroid--Reports symptoms of increased urination--HgbA1c 5.6
Essential HTN to be established--likely secondary to pain--151/100 will monitor BP--IV hydralazine if SBP> 185/100
HLD--Continue Crestor 5 mg at bedtime--Check lipid profile
PVCs/bigeminy hx
GERD--Continue Pepcid 10 mg at bedtime
Gout--Continue allopurinol 200 mg at bedtime
L5 bulging disc hx
Seasonal allergies--Continue loratadine 10 mg at bedtime
DVT prophylaxis--Subcu Lovenox
Full code
Anticipated Discharge: 24 - 48 hours
Subjective/Interval History
-
Date of Service: August 30, 2023
pt ok with d/c --told him only if GI clears him
Objective Data
-
Labs:
Laboratory Results
08/30/23
05:23
WBC 5.6
Hgb 13.7
Hct 39.8
Plt Count 154
Sodium 137
Potassium 4.1
Chloride 105
Carbon Dioxide 28
BUN 18
Creatinine 0.9
Glucose 86
Calcium 8.8
Total Bilirubin 1.1 D
AST 38
ALT 115 H
Alkaline Phosphatase 156 H
Vital Signs:
max temp for 24 hours
08/28/23
23:33
Temp 99.0 F
Vital Signs
Temp Pulse Resp BP Pulse Ox
98.0 F 50 16 151/83 96
08/30/23 07:30 08/30/23 07:30 08/30/23 07:30 08/30/23 07:30 08/30/23 07:30
I&O
08/29/23 08/30/23 08/31/23
06:59 06:59 06:59
Intake Total 1220 / 1220 240 / 240
Balance 1220 / 1220 240 / 240
Review of Systems
-
All other systems: Reviewed and negative
Physical Exam
-
General: Well Developed, Well Nourished and No Apparent Distress
HEENT: Normocephalic and Atraumatic
Respiratory: Clear to Auscultation; Negative Wheezes, Rales or Rhonchi
Cardiac: Regular Rhythm and S1/S2; Negative Murmur
GI: Soft, Nontender, Nondistended and Normal Bowel Sounds
Musculoskeletal: No Clubbing, No Cyanosis and No Edema
Skin: Warm
Neuro: Awake
--- NOTE | 2023-08-30 11:13 | W.PN.GI.CBS2 ---
Addendum entered and electronically signed by Nava Aranda MD 08/30/23 15:29:
I saw and examined the patient.
The DEPUTY CORONER INVESTIGATOR's note was reviewed and I agree with the note.
Patient is asymptomatic. Tolerating diet. Liver test trending down. Possible differential-passed CBD stone or sludge versus papillary stenosis vs SOD
Discussed with Dr. Larios. Plan for EUS +/- ERCP tomorrow
N.p.o. after midnight
Original Note:
Today's Communication / Plan
-
Plan for EUS +/- ERCP tomorrow 08/30. Trend LFTs. Okay for low-fat diet n.p.o. after midnight
Assessment / Plan
-
The patient is a 68-year-old male with a past medical history significant for GERD, choledocholithiasis status postcholecystectomy and ERCP in 2014, biliary colic/cholestasis, history of fatty liver disease diagnosed on liver biopsy (6-7 years ago
at [place]), hyperlipidemia, lumbar disc disease, who presented to the emergency room with complaints of epigastric pain associated with nausea and right, shoulder pain. We are being asked to evaluate for the presenting symptoms. He notes recurrent
attacks similar to this about once yearly of unclear etiology. Possibly dietary related. Imaging does not suggest any obstruction or biliary ductal dilation. With significant elevation of LFTs with mixed hepatocellular and cholestatic pattern.
He has had a liver biopsy in the past out of [facility] which did confirm NATION. He denies history of hepatitis or other liver etiology. Noted with history as above with choledocho status post CCY and ERCP in 2014, which he reports since has
been having the symptoms intermittently. He is not on any medications at this time to treat cholestasis.
08/29/23 MRI/MRCP: Mild hepatic steatosis. No suspicious lesions.
Problem list:
--Abdominal pain/nausea/vomiting, resolved
-- Elevated LFTs-AST 136/ALT 204/alkaline phos 3-28/total bilirubin 3.1. Ultrasound abdomen on admission no intrahepatic dilation. CBD 7 mm
-History history of cholecystectomy
-History of CBD stone s/p ERCP 2015
-Fatty liver
-Right shoulder pain
Recommendations:
-MRI with MRCP with no suspicious lesions or concerning biliary dilation.
-Given his recurrent episodes and unrevealing MRI, would proceed with EUS for further evaluation to rule out underlying lesions or causes. Reviewed this with the patient and his at the bedside and they are agreeable to this plan.
-Okay for low-fat diet today and n.p.o. after midnight for EUS tomorrow.
-Continue to trend LFTs
-Pain management as per hospitalist
-Will follow
Subjective
Subjective
Date of Service: August 30, 2023
The patient was seen and examined at the bedside. He continues with right shoulder/arm pain but has no further GI complaints. LFTs are trending down, are normalizing.
Objective
Data Reviewed
Laboratory Data:
Laboratory Results
08/30/23 05:23
08/30/23 05:23
Laboratory Results
Magnesium 1.9 mg/dl (1.6-2.3) 08/30/23 05:23
Total Bilirubin 1.1 mg/dl (0.2-1.3) D 08/30/23 05:23
AST 38 U/L (17-59) 08/30/23 05:23
ALT 115 U/L (0-50) H 08/30/23 05:23
Alkaline Phosphatase 156 U/L (38-126) H 08/30/23 05:23
Lipase 151 U/L (23-300) 08/27/23 17:07
Vital Signs and I&O:
Vital Signs
Temp Pulse Resp BP Pulse Ox
98.0 F 50 16 151/83 96
08/30/23 07:30 08/30/23 07:30 08/30/23 07:30 08/30/23 07:30 08/30/23 07:30
I&O
08/29/23 08/30/23 08/31/23
06:59 06:59 06:59
Intake Total 1220 / 1220 240 / 240
Balance 1220 / 1220 240 / 240
Physical Exam
Physical Exam
HEENT: Anicteric
Cardiology: S1 and S2 (Regular rate/rhythm)
Pulmonary: Clear
GI: Soft, Non Distended, Non Tender and Normal Bowel Sounds
Extremities: No Edema
Neuro: Non Focal
[2023-08-30] MEDS: FLEXERIL 5 MG PO ×2 (11:24→21:42)
--- NOTE | 2023-08-30 12:24 | CON.ORTHO ---
Consultation
-
Date/Time Consultation Requested: September 09
Date/Time Consultation Performed: September 09
Requesting Provider: Lyn
Performing Provider: Aric for Ritting
Reason for Consultation: Right shoulder/intrascapular pain
Consultation - Orthopedics
History
Dictation#[id number]
Asked to see this pleasant 68-year-old male with PMH PVCs, GERD, Gout, biliary duct spasm, known to Dr. Abdi for his left shoulder, who presented through the ED at [facility] on 27 Aug 2023 with some epigastric pain and nausea. He has
undergone workup and those symptoms have seemed to resolve. For the last few days he has been complaining of some discomfort in the intrascapular region of his right shoulder which wraps around the right side of his chest. he reports 2 weeks ago
doing about 8 straight days of intense yard work, including weeding, fencing, and hardscaping. he denies an actual triggering event, but the pain started shortly thereafter. He was seen by his PCP and provided a steroid taper and a muscle relaxer
(carispodal- which made him extremely groggy). he continues with this discomfort. He requested of Dr. Nicholson an Orthopaedic consultation, however his symptoms seemed very consistent with a muscular strain. he denies any numbness or tingling.
Allergies / Home Medications
Allergy/AdvReac Type Severity Reaction Status Date / Time
Cephalosporins Allergy Unknown Verified 06/15/14 16:57
codeine Allergy Tongue Verified 08/27/23 17:02
Swelling
penicillin G Allergy Hives Verified 06/15/14 16:57
�Medication �Instructions �Recorded
allopurinol 100 mg tablet 200 mg PO HS 08/27/23
famotidine 10 mg tablet 10 mg PO HS 08/27/23
loratadine 10 mg tablet 10 mg PO HS 08/27/23
rosuvastatin 5 mg tablet 5 mg PO HS 08/27/23
Vital Signs / Lab Results
Temp Pulse Resp BP Pulse Ox
98.0 F 50 16 151/83 96
08/30/23 07:30 08/30/23 07:30 08/30/23 07:30 08/30/23 07:30 08/30/23 07:30
08/30/23 05:23
08/30/23 05:23
Assessment / Plan
PE: Afeb. skin is intact. No obvious or palpable deformities. Discomfort generally in the intrascapular region and the intercostal musculature on the right side. full unrestricted essentially pain-free shoulder motion. 5/5 strength with
abduction and external rotation. No atrophy noted. Elbow, wrist, hand all move well. Neurovascularly intact
Diagnostics: MRI of the right shoulder revealed some tendinopathy of the rotator cuff but no full-thickness tear appreciated. Some mild GHJ and ACJOA
Impression: right-sided intercostal strain
Plan: Subjective complaints and physical exam seem very consistent with an intercostal strain. I am leaning more away from radiculopathy, however this could be a factor as well. Discussed with Dr. Nicholson. Decadron did not provide much relief.
I told her I would be okay with a repeat steroid taper on discharge with some Flexeril. Moist heat would probably also be helpful. if his discharge is not imminent maybe some PT could be beneficial as well. Will provide outpatient follow-up
information in his discharge plan for further workup, if necessary, in the next week or 2. Orthopaedics to sign off for now
[2023-08-30 15:25] VITALS: BP 137/76
[2023-08-30] MEDS: LIDOCAINE 4% PATCH 1 PATCH TOPICAL (16:48)
--- NOTE | 2023-08-30 17:51 | PTCARENOTE ---
Pt walking arounf floor and room, refused Abdi
[2023-08-30 19:26] LABS: Hepatitis B Surface Antigen Negative (Negative)
[2023-08-30 19:45] LABS: Hepatitis B Core Ab, Total Negative (Negative); Hepatitis B Surface Antibody Positive; Hepatitis C Antibody Negative (Negative)
[2023-08-30 19:56] LABS: Hepatitis A Antibody, Total Positive (Negative)
[2023-08-30 21:23] LABS: Hepatitis A IgM Antibody Negative (Negative)
[2023-08-30] MEDS: PEPCID 10 MG PO (21:40)
[2023-08-30] MEDS: CLARITIN 10 MG PO (21:41)
[2023-08-30] MEDS: ZYLOPRIM 200 MG PO (21:42)
[2023-08-30] MEDS: NSS IV (21:48)
[2023-08-30 23:24] VITALS: BP 153/89
[2023-08-31] MEDS: DILAUDID 0.5 MG IV (02:38)
[2023-08-31 07:30] VITALS: BP 157/86
[2023-08-31] MEDS: NSS 1000 IV ×2 (08:34→17:36)
[2023-08-31] MEDS: FLEXERIL 5 MG PO (08:34)
[2023-08-31] MEDS: LIDOCAINE 4% PATCH 1 PATCH TOPICAL (08:34)
--- NOTE | 2023-08-31 14:13 | W.PN.HOSP.TC ---
Today's Communication/Plan
-
see plan
Assessment / Plan
Assessment / Plan
pt is a 68 year old male
Abdominal pain with transaminitis, hyperbilirubinemia (has hx of fatty liver/NATION/biliary spasms/cholecystectomy)
-CT scan without acute abnormalities
-MRI/MRCP without significant findings
-likely passed stone; plan for ERCP/EUS today
Right posterior paraspinal muscle strain with upper right rib pain likely musculoskeletal/costochondritis versus radicular pain (patient describes burning sensation)
-reports no relief with Flexeril or decadron
-will trial Gabapentin (stop flexeril)
-Shoulder MRI with tendinopathy of rotator cuff, no full thickness tear
-has follow up outpatient with ortho
-Heat, Lidoderm patch
Hyperglycemia--BS 122 on admission--watch with steroid--Reports symptoms of increased urination--HgbA1c 5.6
Essential HTN to be established--likely secondary to pain--151/100 will monitor BP--IV hydralazine if SBP> 185/100
HLD- Crestor 5 mg at bedtime--Check lipid profile
PVCs/bigeminy hx
GERD--Continue Pepcid 10 mg at bedtime
Gout--Continue allopurinol 200 mg at bedtime
L5 bulging disc hx
Seasonal allergies--Continue loratadine 10 mg at bedtime
DVT prophylaxis--Subcu Lovenox
Full code
Anticipated Discharge: 24 - 48 hours
Subjective/Interval History
-
Date of Service: August 31, 2023
continues to have right arm pain that extends from back and wraps around to front chest
Objective Data
-
Vital Signs:
Vital Signs
Temp Pulse Resp BP Pulse Ox
97.6 F 53 18 157/86 98
08/31/23 07:30 08/31/23 07:30 08/31/23 07:30 08/31/23 07:30 08/31/23 13:01
I&O
08/30/23 08/31/23 09/01/23
06:59 06:59 06:59
Intake Total 240 / 240 780 / 780
Balance 240 / 240 780 / 780
Review of Systems
-
History Source: Patient
All other systems: Reviewed and negative
Physical Exam
-
General: No Apparent Distress
HEENT: PERRLA
Respiratory: Clear to Auscultation; Negative Wheezes
Cardiac: Regular Rhythm and S1/S2
GI: Soft and Nontender
Musculoskeletal: No Edema
Skin: Warm and Dry; Negative Rash
Neuro: AO x 3
Psych: Calm
Data Reviewed
-
Diagnostic Radiology: Report Reviewed by me
Labs: Labs Reviewed by me
[2023-08-31 14:31] LABS: % Eosinophils 1.2 % (0-6); % Immature Granulocytes 0.2 % (0-0.5); % Monocytes 8.5 % (1.7-9.3); % Neutrophils 61.1 % (42.2-75.2); Absolute Basophils 0.1 10^3/uL (0-0.2); Absolute Eosinophils 0.1 10^3/uL (0-0.7); Absolute Lymphocytes 1.4 10^3/uL (1.2-3.4); Absolute Monocytes 0.4 10^3/uL (0.1-0.6); Absolute Neutrophils 3.1 10^3/uL (1.4-6.5); Hematocrit 41.7 % (39.0-52.0); Hemoglobin 14.4 g/dL (13.0-18.0); Mean Corp Hgb Conc. 34.5 g/dL (33.0-37.0); Mean Corpuscular Hgb 30.7 pg (27.0-31.0); Mean Corpuscular Volume 88.9 fL (80.0-94.0); Mean Platelet Volume 9.7 fL (7.4-10.4); Nucleated Red Blood Cells % 0 % (-); Platelet Count 164 10^3/uL (130-400); Red Blood Cell Count 4.69 10^6/uL (4.70-6.10); Red Cell Dist. Width 14.1 % (11.5-14.5); White Blood Cell Count 5.1 10^3/uL (4.8-10.8)
[2023-08-31 14:42] LABS: ALT (SGPT) 83 U/L (0-50); AST (SGOT) 31 U/L (17-59); Albumin 3.5 g/dl (3.5-5.0); Alkaline Phosphatase 132 U/L (38-126); Blood Urea Nitrogen 17 mg/dl (9-20); Carbon Dioxide 30 mmol/L (22-30); Chloride 104 mmol/L (98-107); Estimated Creatinine Clearance 105 ml/min; Glucose 92 mg/dl (70-99); Potassium 3.9 mmol/L (3.5-5.1); Sodium 138 mmol/L (135-145); Total Bilirubin 1.1 mg/dl (0.2-1.3); eGFR > 60.00
[2023-08-31 15:30] VITALS: BP 155/93
--- NOTE | 2023-08-31 16:54 | W.PN.UPDATE ---
Update Note
Progress Note Update
Reviewed with GI team unable to completed EUS this afternoon as anesthesia staff unavailable. Dr. Graham to review with pt. will resume diet. Sent message to Dr. Marroquin.
--- NOTE | 2023-08-31 16:58 | CM ---
PT for an ERCP today.
Spoke with Viv in room . She said she will drive him home at dc.
Offered Vn she declined need at dc.
IMM given signed on chart.
PLAN Home no needs
--- NOTE | 2023-08-31 18:11 | W.DS.TRANS ---
DC Summary - [employer]
-
Discharge Instructions:
Discharge Diagnosis/Procedures Abdominal pain with transaminitis and
hyperbilirubinemia possibly related to biliary
spasm or passed stone, right posterior
paraspinal muscle strain with upper right rib
pain, hyperglycemia, essential hypertension,
hyperlipidemia, gastroesophageal reflux disease,
gout, L5 bulging disc history, PVCs/bigeminy
history
Diet Low Fat
Activity As tolerated
Driving Restrictions As prior to admission
Bathing Restrictions None
Instructions:
Stand-Alone Forms:
Changes to Home Medications: Yes
Discharge Medications:
DC Medications w/original date entered in [employer]
allopurinol 100 mg tablet 200 mg PO HS 08/27/23
famotidine 10 mg tablet 10 mg PO HS 08/27/23
loratadine 10 mg tablet 10 mg PO HS 08/27/23
rosuvastatin 5 mg tablet 5 mg PO HS 08/27/23
gabapentin 100 mg capsule 200 mg (2 x 100 mg) PO HS #60 caps 08/31/23
lidocaine 4 % topical patch 1 patch topical DAILY #14 ea 08/31/23
Home Medication Changes
addition of lidocaine patch and gabapentin
Pending Results: No
--- NOTE | 2023-09-01 07:06 | W.DCSUMMARY ---
Discharge Summary
Discharge Data
Date of Admission: 08/29/23
Date of Discharge: 08/31/23
-
Pending Results: No
Hospital Course
Discharging Physician : Dr. Trang Marroquin
Disposition : Home
Primary care physician : Dr. Patrice Mcgraw
Principal Discharge diagnosis : Abdominal pain with Transaminitis concerning for passed stone; right shoulder pain
Hospital Course :
Mr. Jaxon Cisneros Jr is a 68 yo man with hx GERD, cholelithiasis s/p cholecystectomy and ERCP 2014, fatty liver disease, HLD, lumbar spine radiculopathy presents to the ER with upper badominal pain and nausea. He also complained of right-sided
midscapular pain. Triage vitals significant for hypertension. Labs with WBC 11.6, T. Bili 2.6, AST 184, ALT 173, Alk Phos 252, Lipase 151. RUQ US without intrahepatic dilation, CBD 7mm.
Patient was admitted to medicine with GI consulting for further work-up of abdominal pain and transaminitis. MrI/MRCP obtained without e/o intraductal stones or suspicious lesions. Given recurrent episodes with unrevealing MRI decision made to
pursue EUS. Plan was for EUS on 08/30 but unfortunately procedure cancelled as anesthesia staff unavailable. At this point patient was pain free and liver enzymes had normalized. Presentation likely 2/2 passed stone or sludge. Decision made to
pursue EUS as outpatient and patient was discharged home.
While patient was in-house he also continued to complain of right shoulder and interscapular pain. He reported doing 8 straight days of intense yard work 2 weeks prior and pain started shortly thereafter. He was seen by PCP and given a steroid
taper and muscle relaxer which did not help significantly. He was seen by ortho during this admission. Shoulder MRI obtained which revealed some tendinopathy of rotator cuff but no full-thickness tear. Flexeril ineffective. He is discharge with
trial of low dose Gabapentin. He will follow up closely as outpatient and has plans to see Orthopedics on 09/01.
Time spent on discharge was 35 minutes.
Important imaging findings :
ADOMINAL US 08/27/23
IMPRESSION: Mild hepatomegaly. New
Hepatic fatty infiltration. New
Prior cholecystectomy
CHEST/ABDOMEN/PELVIS CTA 08/27/23
IMPRESSION: No acute pathology of the chest, abdomen and pelvis. No evidence of aortic dissection nor gross pulmonary embolus
Large simple left renal cyst. Stable
Severe diverticulosis. Stable
Mild fecal material throughout the colon. Progressed
Mild prostate hypertrophy. Stable
MRI ABDOMEN 08/29/23
IMPRESSION:
Mild hepatic steatosis. No suspicious lesions.
SHOULDER MRI 08/29/23
IMPRESSION:
Low-grade articular surface tearing of the distal supraspinatus/infraspinatus junctional fibers near the footprint. No full-thickness or retracted rotator cuff tears.
Mild degenerative changes of the glenohumeral and acromioclavicular joints.
Procedure findings :
Discharge Plan
-
Patient Disposition: Home (Routine Discharge)
Discharge Diagnosis/Procedures: Abdominal pain with transaminitis and hyperbilirubinemia possibly related to biliary spasm or passed stone, right posterior paraspinal muscle strain with upper right rib pain, hyperglycemia, essential hypertension,
hyperlipidemia, gastroesophageal reflux disease, gout, L5 bulging disc history, PVCs/bigeminy history
Condition: Good
Diet: Low Fat
Activity: As tolerated
Driving Restrictions: As prior to admission
Bathing Restrictions: None
Referrals:
Patrice Mcgraw I., [Family Provider] - in less than 1 week
Rikki Abdi MD [Active] - in one to two weeks
(or a PA
[phone])
Nava Aranda MD [Active] - (Office will call you about scheduling for outpatient EUS)
Additional Discharge Medication Instructions: You are prescribed a lidocaine patch and Gabapentin to help with pain of right upper back. Gabapentin will be beneficial if there is a radiculopathy component. Start with 1-2 tablets at bedtime. This
dose can be increased slowly by outpatient providers. Follow up with Orthopedics as planned.
You will have an outpatient EUS. This will be scheduled tomorrow.
Prescriptions:
New
lidocaine 4 % Adhesive Patch,Medicated
1 patch topical DAILY Qty: 14 0RF
gabapentin 100 mg Capsule
200 mg PO HS Qty: 60 0RF
Continued
famotidine 10 mg Tablet
10 mg PO HS
allopurinol 100 mg tablet
200 mg PO HS
loratadine 10 mg Tablet
10 mg PO HS
rosuvastatin 5 mg tablet
5 mg PO HS
Discharge Orders:
Discharge Patient (As Directed); Ordered 08/31/23
Ordered By: Trang Marroquin
Discharge Date and Time
Discharge Date/Time: 08/31/23 18:49
Print Language: BULGARIAN
== END 2023-08-31 18:49 | disposition home or self-care (01) | DRG 392 ==
LOC: 4 EAST ACU 12:58
PROVIDERS: Clinical Nurse Specialist Family Health; Emergency Medicine; Internal Medicine; Nurse Practitioner Family; ADMITTING PHYSICIAN Internal Medicine; ATTENDING PHYSICIAN Student in an Organized Health Care Education/Training Program; CONSULT PHYSICIAN Internal Medicine Gastroenterology; CONSULT PHYSICIAN Orthopaedic Surgery Hand Surgery; EMERGENCY PHYSICIAN Emergency Medicine; FAMILY PHYSICIAN Internal Medicine; OTHER PHYSICIAN Physician Assistant Surgical
DX: R10.9 Unspecified abdominal pain (principal); K75.81 Nonalcoholic steatohepatitis (NASH); K76.0 Fatty (change of) liver, not elsewhere classified; K21.9 Gastro-esophageal reflux disease without esophagitis; E78.00 Pure hypercholesterolemia, unspecified; I10 Essential (primary) hypertension; M25.511 Pain in right shoulder; R74.01 Elevation of levels of liver transaminase levels; E80.6 Other disorders of bilirubin metabolism
CPT/HCPCS: 71275; 73221; 74174; 74183; 76705; 80053; 81003; 83036; 83690; 83735; 84484; 85025; 85027; 86704; 86706; 86708; 86709; 86803; 87340; 93005; 96361; 96374; 96375; 97161; 99285; A9581; Q9967

== ENCOUNTER → 2023-09-03 16:25 | Outpatient (REF) | payer MEDICARE, OTHER, SELFPAY | LOC: PAVMRI 16:25 | PROVIDERS: ATTENDING PHYSICIAN Physical Medicine & Rehabilitation; FAMILY PHYSICIAN Internal Medicine | DX: M54.14 Radiculopathy, thoracic region (principal) | CPT/HCPCS: 72146 ==

== ENCOUNTER 2023-09-23 13:40 | Day surgery (SDC) | payer MEDICARE, OTHER, SELFPAY ==
[2023-09-23 10:26] VITALS: BMI 30.6
[2023-09-23 10:28] VITALS: BMI 30.6
[2023-09-23 10:35] VITALS: BP 134/90
[2023-09-23 13:42] VITALS: BP 118/86
[2023-09-23 13:45] VITALS: BP 132/92
[2023-09-23 14:00] VITALS: BP 125/82
[2023-09-23 14:15] VITALS: BP 153/100
[2023-09-23 14:16] VITALS: BP 155/93
== END 2023-09-23 14:35 | disposition home or self-care (01) ==
LOC: GI 13:40
PROVIDERS: ATTENDING PHYSICIAN Internal Medicine Gastroenterology
DX: K80.50 Calculus of bile duct without cholangitis or cholecystitis without obstruction (principal); K86.9 Disease of pancreas, unspecified; R74.8 Abnormal levels of other serum enzymes; K83.8 Other specified diseases of biliary tract; R93.2 Abnormal findings on diagnostic imaging of liver and biliary tract
CPT/HCPCS: 43262; 43237; 74330; 76000; C1769

== ENCOUNTER → 2023-11-29 11:13 | Outpatient (REF) | payer MEDICARE, OTHER, SELFPAY | LOC: RCS 11:13 | PROVIDERS: ATTENDING PHYSICIAN Orthopaedic Surgery; FAMILY PHYSICIAN Internal Medicine | DX: Z01.818 Encounter for other preprocedural examination (principal) | CPT/HCPCS: 93005 ==

== ENCOUNTER 2024-07-31 06:17 | Day surgery (SDC) | payer MEDICARE, OTHER, SELFPAY | END 2024-07-31 09:42 | disposition home or self-care (01) | LOC: GI 06:17 | PROVIDERS: ATTENDING PHYSICIAN Internal Medicine | DX: Z12.11 Encounter for screening for malignant neoplasm of colon (principal); D12.3 Benign neoplasm of transverse colon; D12.4 Benign neoplasm of descending colon; K57.30 Diverticulosis of large intestine without perforation or abscess without bleeding; K64.9 Unspecified hemorrhoids; Z86.0100 Personal history of colon polyps, unspecified | CPT/HCPCS: 45380; 88305 ==